=== PATIENT | female | born 1960 | race Caucasian/White ===

== ENCOUNTER 2018-01-20 09:57 | Emergency (ER) | payer BC ==
--- NOTE | 2018-01-20 10:56 | ED ---
Back Pain - HPI Summary HPI Summary: This is scribe Robin Alvarez documenting for attending Dr. Gael Yeung MD. This patient is a 57 year old F presenting to [facility] accompanied by a male with a chief complaint of worsening lower back pain on the right side with diffuse right side ecchymosis since 8 days ago. The patient rates the pain 9/10 in severity. Symptoms are worse at night and when she wakes up. Symptoms aggravated by movement and alleviated by resting. Pt reports she was moving boxes when she fell onto her right side. Patient reports ecchymosis on the right calf, pain in the right hip, and difficulty moving without pain. Patient denies generalized back pain or hematuria. Pt reports she takes arthritis medication and it temporarily helps with her other symptoms. Pt is currently on vacation at the [place] in [place]. PMHX osteoarthritis, SVT, HTN, GERD, and Depression. RX baby Aspirin. NKDA. I, Dr. Yeung, personally performed the services described in this documentation as scribed in my presence and it is both accurate and complete. - History of Current Complaint Chief Complaint: EDBackInjuryPain Stated Complaint: FALL/RT FLANK PAIN & BRUISING Time Seen by Provider: 01/20/18 10:19 Hx Obtained From: Patient Onset/Duration: Gradual Onset, Lasting Days - 8 Onset/Duration: Started Days Ago - 8 Timing: Constant Back Pain Location: Is Discrete @ - right side Severity Initially: Severe Severity Currently: Severe Pain Intensity: 9 Pain Scale Used: 0-10 Numeric Character: Aching Aggravating Symptom(s): Movement, Bending Alleviating Symptom(s): Rest, Position Associated Signs And Symptoms: Positive: Bruising - Allergies/Home Medications Allergies/Adverse Reactions: Allergies Allergy/AdvReac Type Severity Reaction Status Date / Time No Known Allergies Allergy Verified 01/20/18 10:12 Home Medications: Home Medications Aspirin 81 mg PO DAILY 01/20/18 [History Confirmed 01/20/18] Calcium 1,200 mg PO DAILY 01/20/18 [History Confirmed 01/20/18] Ibuprofen 600 mg PO DAILY 01/20/18 [History Confirmed 01/20/18] Lisinopril 2.5 mg PO DAILY 01/20/18 [History Confirmed 01/20/18] Magnesium 500 mg PO DAILY 01/20/18 [History Confirmed 01/20/18] Melatonin 5 mg PO BEDTIME PRN 01/20/18 [History Confirmed 01/20/18] Meloxicam 15 mg PO DAILY 01/20/18 [History Confirmed 01/20/18] Osteo Bi-Flex Tablet 1 cap PO DAILY 01/20/18 [History Confirmed 01/20/18] Probiotic 1 cap PO DAILY 01/20/18 [History Confirmed 01/20/18] Prozac 40 mg PO DAILY 01/20/18 [History Confirmed 01/20/18] Ranitidine HCl 300 mg PO DAILY 01/20/18 [History Confirmed 01/20/18] Slow Fe 75 mg PO DAILY 01/20/18 [History Confirmed 01/20/18] Verapamil ER 120 mg PO DAILY 01/20/18 [History Confirmed 01/20/18] Vitamin B-12 1,000 mcg PO DAILY 01/20/18 [History Confirmed 01/20/18] Vitamin D3 4,000 units PO DAILY 01/20/18 [History Confirmed 01/20/18] PMH/Surg Hx/FS Hx/Imm Hx Cardiovascular History: Reports: Hx Hypertension GI History: Reports: Hx Gastroesophageal Reflux Disease History: Denies: Hx Dialysis EENT History: Denies: Hx Deafness Psychiatric History: Reports: Hx Depression Infectious Disease History: No Infectious Disease History: Denies: Traveled Outside the [place] in Last 30 Days - Family History Known Family History: Positive: Hypertension - Social History Alcohol Use: None Substance Use Type: Reports: None Smoking Status (MU): Never Smoked Tobacco Review of Systems Negative: Fever Negative: hematuria Positive: Bruising - right side All Other Systems Reviewed And Are Negative: Yes Physical Exam - Summary Physical Exam Summary: Appearance: The patient is well-nourished in no acute distress and in no acute pain. Skin: The skin is warm and dry and skin color reflects adequate perfusion. Ecchymosis on the right anterior lateral calf and the right hip. A few small areas of ecchymosis in the right paralumbar area. HEENT: The head is normocephalic and atraumatic. The pupils are equal and reactive. The conjunctivae are clear and without drainage. Nares are patent and without drainage. Mouth reveals moist mucous membranes and the throat is without erythema and exudate. The external ears are intact. The ear canals are patent and without drainage. The tympanic membranes are intact. Neck: The neck is supple with full range of motion and non-tender. There are no carotid bruits. There is no neck vein distension. Respiratory: Chest is non-tender. Lungs are clear to auscultation and breath sounds are symmetrical and equal. Cardiovascular: Heart is regular rate and rhythm. There is no murmur or rub auscultated. There is no peripheral edema and pulses are symmetrical and equal. Abdomen: The abdomen is soft and non-tender. There are normal bowel sounds heard in all four quadrants and there is no organomegaly palpated. Nontender over the liver. Musculoskeletal: Extremities are non-tender with full range of motion. There is good capillary refill. There is no peripheral edema. Tenderness in the right paralumbar area. Neurological: Patient is alert and oriented to person, place and time. The patient has symmetrical motor strength in all four extremities. Cranial nerves are grossly intact. Deep tendon reflexes are symmetrical and equal in all four extremities. Psychiatric: The patient has an appropriate affect and does not exhibit any anxiety or depression. Triage Information Reviewed: Yes Vital Signs On Initial Exam: Initial Vitals Temp Pulse Resp BP Pulse Ox 98.3 F 67 18 155/79 97 01/20/18 10:07 01/20/18 10:07 01/20/18 10:07 01/20/18 10:07 01/20/18 10:07 Vital Signs Reviewed: Yes Diagnostics - Vital Signs Vital Signs Temp Pulse Resp BP Pulse Ox 01/20/18 10:07 98.3 F 67 18 155/79 97 - Laboratory Lab Statement: Any lab studies that have been ordered have been reviewed, and results considered in the medical decision making process. - Radiology Ribs w/ CXR Radiology Interpretation Completed By: Radiologist - Negative for RIGHT rib fracture or pneumothorax. ED Physician has reviewed this report Back Pain Course/Dx - Course Course Of Treatment: Ms. Dickson presented with a concern that after having fallen days ago she has been improving except for pain in her right flank which has been worsening. She had some ecchymosis and tenderness in that area. X- rays showed no obvious sign of any fracture abdomen was soft and nontender and I recommended she stay the course. - Diagnoses Provider Diagnoses: Back strain, Contusion of chest Discharge - Sign-Out/Discharge Documenting (check all that apply): Patient Departure - discharge - Discharge Plan Condition: Stable Disposition: HOME Prescriptions: LORazepam TAB(*) [Ativan TAB(*)] 1 mg PO BEDTIME PRN #10 tab MDD 4 PRN Reason: Pain Patient Education Materials: Low Back Strain (ED) Referrals: [facility] [Outside] Additional Instructions: RETURN TO THE EMERGENCY DEPARTMENT FOR CHANGING OR WORSENING SYMPTOMS - Billing Disposition and Condition Condition: STABLE Disposition: Home
--- NOTE | 2018-01-20 11:20 | RAD ---
Indication: RIGHT flank pain and bruising post fall last . Comparison: No relevant prior exams available on the [facility] [place] PACS for comparison. Technique: Dual energy PA chest and 4 view RIGHT unilateral rib series Report: Negative for RIGHT rib fracture. Clear lungs and pleural spaces. Negative for pneumothorax. The heart, pulmonary vasculature, and mediastinal contours are unremarkable. Incidental note of calcific tendinopathy of the RIGHT rotator cuff and possibly also on the LEFT. Unremarkable soft tissue contours. IMPRESSION: #. Negative for RIGHT rib fracture or pneumothorax.
[2018-01-20 11:35] VITALS: BP 151/97
== END 2018-01-20 11:34 | disposition home or self-care (01) ==
LOC: ED 09:57
DX: S39.012A Strain of muscle, fascia and tendon of lower back, initial encounter (principal); S20.211A Contusion of right front wall of thorax, initial encounter; W19.XXXA Unspecified fall, initial encounter; Y93.89 Activity, other specified; Y92.9 Unspecified place or not applicable; I47.1 Supraventricular tachycardia; I10 Essential (primary) hypertension; K21.9 Gastro-esophageal reflux disease without esophagitis; F32.9 Major depressive disorder, single episode, unspecified; M19.90 Unspecified osteoarthritis, unspecified site; Z79.82 Long term (current) use of aspirin; Z79.899 Other long term (current) drug therapy
CPT/HCPCS: 99282